=== PATIENT | female | born 1985 | race Caucasian/White ===

== ENCOUNTER 2018-12-06 10:28 | Emergency (ER) | payer MEDICAID ==
[~2018-12-06] VITALS: Ht 170.2 cm; Wt 81.7 kg
[~2018-12-06 10:28] MED LIST: ALBU90OI INH; Amoxicillin500 MG PO; BENZ100A PO; HYDACE5 PO; NAPR550 PO; Prednisone20 MG PO; QVAR7.3 G1; RXHYDACE PO; RXNAPNA550 PO; SPACE CHAMBER1 EACH MC; Zithromax250 MG PO
[2018-12-06 11:48] LABS: Source, Urine Clean Catch
[2018-12-06 11:54] LABS: Bilirubin, Urine Neg (Neg); Blood, Urine 1+ (Neg); Glucose Qualitative, Urine Neg (Neg); Ketones, Urine 1+ (Neg); Leukocyte Esterase, Urine 1+ (Neg); Nitrite, Urine Neg (Neg); Protein, Urine 1+ (Neg); Specific Gravity, Urine 1.025 (1.003-1.022); Urobilinogen, Urine 1+ (Normal)
[2018-12-06 12:12] LABS: Appearance, Urine Hazy (Clear); Color, Urine Yellow (P-Yellow)
[2018-12-06 12:13] LABS: Bacteria Rare /hpf; Mucus Light (0-Heavy); Red Blood Cells, Urine 0-2 /hpf (0-2); Squamous Epithelial Cells Few /hpf (Few); White Blood Cells, Urine 0-2 /hpf (0-5)
[2018-12-06] MEDS ORDERED: Robaxin-750750 MG PO (12:34)
[2018-12-06] MEDS ORDERED: IBUP800 PO (12:34)
== END 2018-12-06 12:37 | disposition home or self-care (01) ==
LOC: ER 10:28
PROVIDERS: Physician Assistant
DX: S30.0XXA Contusion of lower back and pelvis, initial encounter (principal); R30.0 Dysuria; W00.0XXA Fall on same level due to ice and snow, initial encounter; Z88.8 Allergy status to other drugs, medicaments and biological substances; Z87.891 Personal history of nicotine dependence
CPT/HCPCS: 72100; 72220; 81001; 87086; 99283-25

== ENCOUNTER → 2019-10-31 | Outpatient (CLI) | payer OTHER ==
[~2019-10-31] MED LIST changes: +IBUP800 PO; +Robaxin-750750 MG PO
[2019-11-02 13:07] LABS: HPV 16 Negative (Negative); HPV 18 Negative (Negative); HPV OTHER HR TYPES Negative (Negative)
== END ==
LOC: LAB 12:00 → LAB SHORT 12:00
PROVIDERS: Registered Nurse Community Health
DX: Z12.4 Encounter for screening for malignant neoplasm of cervix (principal)
CPT/HCPCS: 87624; G0123

== ENCOUNTER 2021-12-15 22:50 | Emergency (ER) | payer OTHER ==
[~2021-12-15] VITALS: Ht 170.2 cm; Wt 83.9 kg
== END 2021-12-16 00:21 | disposition home or self-care (01) ==
LOC: ER 22:50
DX: T78.40XA Allergy, unspecified, initial encounter (principal); Z87.891 Personal history of nicotine dependence
CPT/HCPCS: 99282; A9270

== ENCOUNTER 2022-07-22 20:50 | Emergency (ER) | payer OTHER ==
[~2022-07-22] VITALS: Ht 170.2 cm; Wt 70.3 kg
== END 2022-07-22 21:27 | disposition home or self-care (01) ==
LOC: ER 20:50
DX: J02.9 Acute pharyngitis, unspecified (principal); J45.909 Unspecified asthma, uncomplicated; Z88.6 Allergy status to analgesic agent; Z91.048 Other nonmedicinal substance allergy status; Z87.891 Personal history of nicotine dependence
CPT/HCPCS: 87430

== ENCOUNTER 2022-07-24 07:25 | Emergency (ER) | payer OTHER ==
[~2022-07-24] VITALS: Ht 170.2 cm; Wt 74.8 kg
[2022-07-24] MEDS ORDERED: AMOCLA875 PO (09:18)
== END 2022-07-24 09:40 | disposition home or self-care (01) ==
LOC: ER 07:25
DX: J32.9 Chronic sinusitis, unspecified (principal); J45.909 Unspecified asthma, uncomplicated; Z88.6 Allergy status to analgesic agent; Z91.048 Other nonmedicinal substance allergy status; Z87.891 Personal history of nicotine dependence
CPT/HCPCS: 99283

== ENCOUNTER 2022-07-24 18:32 | Observation (INO) | payer OTHER ==
[~2022-07-24] VITALS: Ht 170.2 cm; Wt 74.8 kg
[~2022-07-24 18:32] MED LIST changes: +AMOCLA875 PO
[2022-07-24 19:19] LABS: BASOPHILS ABSOLUTE AUTO 0.03 K/mm3 (0.00-0.23); BASOPHILS PERCENT AUTO 0 % (0-2); EOSINOPHILS ABSOLUTE AUTO 0.29 K/mm3 (0.00-0.68); EOSINOPHILS PERCENT AUTO 3 % (0-6); Hematocrit 41.9 % (33.0-51.0); IMMATURE GRAN ABSOLUTE AUTO 0.04 K/mm3 (0.00-0.10); IMMATURE GRAN PERCENT AUTO 0 % (0-1); LYMPHOCYTES ABSOLUTE AUTO 1.63 K/mm3 (0.84-5.20); LYMPHOCYTES PERCENT AUTO 15 % (21-46); MONOCYTES ABSOLUTE AUTO 0.92 K/mm3 (0.16-1.47); MONOCYTES PERCENT AUTO 9 % (4-13); Mean Corpuscular HGB 30.6 pg (26.0-34.0); Mean Corpuscular HGB Conc 33.4 g/dL (31.5-36.5); Mean Corpuscular Volume 92 fL (80-100); Mean Platelet Volume 9.2 fL (9.1-12.4); NEUTROPHILS ABSOLUTE AUTO 7.82 K/mm3 (1.96-9.15); NEUTROPHILS PERCENT AUTO 73 % (41-73); Platelet Count 356 K/mm3 (150-400); RDW Coefficient Variation 13.2 % (11.7-14.2); RDW Standard Deviation 43.9 fL (35.1-46.3); Red Blood Cell Count 4.58 M/mm3 (3.80-5.20); White Blood Cell Count 10.73 K/mm3 (4.00-11.30)
[2022-07-24 19:20] LABS: Source, Urine Clean Catch
[2022-07-24 19:26] LABS: Appearance, Urine Clear (Clear); Bilirubin, Urine Neg (Neg); Blood, Urine Neg (Neg); Glucose Qualitative, Urine Neg (Neg); Ketones, Urine Neg (Neg); Leukocyte Esterase, Urine 1+ (Neg); Nitrite, Urine Neg (Neg); Protein, Urine Neg (Neg); Specific Gravity, Urine 1.005 (1.003-1.022); Urobilinogen, Urine NORM (Normal)
[2022-07-24 19:33] LABS: Color, Urine Pale Yellow (P-Yellow)
[2022-07-24 19:34] LABS: Red Blood Cells, Urine 0-2 /hpf (0-2)
[2022-07-24 19:35] LABS: Bacteria Mod /hpf; Squamous Epithelial Cells Mod /hpf (Few)
[2022-07-24 19:38] LABS: U Amphetamine Screen Not Detected; U Barbituate Screen Not Detected; U Benzodiazapine Screen Not Detected; U Buprenorphine Screen Not Detected; U Cannabinoids Screen DETECTED; U Cocaine Screen Not Detected; U Methadone Screen Not Detected; U Methamphetamine Screen Not Detected; U Opiates Screen Not Detected; U Oxycodone Screen Not Detected; U Phencyclidine Screen Not Detected; U Propoxyphene Screen Not Detected
[2022-07-24 19:43] LABS: Salicylate <1.7 mg/dL (2.8-20.0)
[2022-07-24 19:53] LABS: Acetaminophen, Random <2.0 ug/mL (10.0-30.0); Alanine Aminotransfer (ALT/SGP 21 U/L (12-78); Albumin, Blood 4.6 g/dL (3.4-5.0); Albumin/Globulin Ratio 1.3 (0.8-1.8); Alk Phos 94 U/L (50-136); Anion Gap 7 mmol/L (6-16); Aspartate Aminotrans (AST/SGOT 15 U/L (12-37); Bilirubin, Total 0.6 mg/dL (0.1-1.0); Blood Urea Nitrogen 8 mg/dL (8-24); Bun/Creatinine Ratio 12.4 (12.0-20.0); CO2, Blood 28 mmol/L (21-32); Calcium, Blood 9.3 mg/dL (8.5-10.1); Chloride, Blood 104 mmol/L (98-108); Creatinine, Blood 0.65 mg/dL (0.40-1.00); Ethanol (Alcohol), Blood, Med <3 mg/dL; Globulin, Blood 3.5 g/dL (2.2-4.0); Glomerular Filtration Rate 116 (60-); Glucose, Blood 95 mg/dL (70-99); Potassium, Blood 3.6 mmol/L (3.5-5.5); Sodium, Blood 139 mmol/L (136-145); Total Protein, Blood 8.1 g/dL (6.4-8.2)
[2022-07-24 20:05] LABS: Influenza A, PCR NEGATIVE (NEGATIVE); Influenza B, PCR NEGATIVE (NEGATIVE); Resp Syncytial Virus, PCR NEGATIVE (NEGATIVE); SARS-Cov-2 (COVID-19) PCR, MMC NEGATIVE (NEGATIVE)
== END 2022-07-26 12:44 | disposition home or self-care (01) ==
LOC: ER 18:32 → EOR 18:33
PROVIDERS: Physician Assistant; ADMIT Emergency Medicine
DX: F33.2 Major depressive disorder, recurrent severe without psychotic features (principal); J45.909 Unspecified asthma, uncomplicated; Z20.822 Contact with and (suspected) exposure to COVID-19; Z59.00 Homelessness unspecified; Z88.6 Allergy status to analgesic agent; Z91.048 Other nonmedicinal substance allergy status
CPT/HCPCS: 0241U; 36415; 80053; 81001; 81025; 85025; 87086; 93005; 93010; A9270; G0480

== ENCOUNTER 2022-10-20 15:51 | Inpatient (IN) | payer OTHER ==
[~2022-10-20] VITALS: Ht 170.2 cm; Wt 71.6 kg
[2022-10-20 16:37] LABS: BASOPHILS ABSOLUTE AUTO 0.03 K/mm3 (0.00-0.23); BASOPHILS PERCENT AUTO 0 % (0-2); EOSINOPHILS ABSOLUTE AUTO 0.02 K/mm3 (0.00-0.68); EOSINOPHILS PERCENT AUTO 0 % (0-6); Hematocrit 39.3 % (33.0-51.0); Hemoglobin 13.2 g/dL (11.5-16.0); IMMATURE GRAN ABSOLUTE AUTO 0.02 K/mm3 (0.00-0.10); IMMATURE GRAN PERCENT AUTO 0 % (0-1); LYMPHOCYTES ABSOLUTE AUTO 1.21 K/mm3 (0.84-5.20); LYMPHOCYTES PERCENT AUTO 15 % (21-46); MONOCYTES ABSOLUTE AUTO 0.62 K/mm3 (0.16-1.47); MONOCYTES PERCENT AUTO 8 % (4-13); Mean Corpuscular HGB 30.6 pg (26.0-34.0); Mean Corpuscular HGB Conc 33.6 g/dL (31.5-36.5); Mean Corpuscular Volume 91 fL (80-100); Mean Platelet Volume 9.5 fL (9.1-12.4); NEUTROPHILS ABSOLUTE AUTO 6.28 K/mm3 (1.96-9.15); NEUTROPHILS PERCENT AUTO 77 % (41-73); Platelet Count 344 K/mm3 (150-400); RDW Coefficient Variation 13.3 % (11.7-14.2); RDW Standard Deviation 44.7 fL (35.1-46.3); Red Blood Cell Count 4.32 M/mm3 (3.80-5.20); White Blood Cell Count 8.18 K/mm3 (4.00-11.30)
[2022-10-20 16:53] LABS: Ethanol (Alcohol), Blood, Med <3 mg/dL; Salicylate <1.7 mg/dL (2.8-20.0); Thyroxine (T4) 7.5 ug/dL (4.8-13.9)
[2022-10-20] MEDS ORDERED: ALBU90OI INH (16:54)
[2022-10-20 17:00] LABS: Thyroid Stimulating Hormone 0.538 uIU/mL (0.360-4.800)
[2022-10-20 17:05] LABS: Alanine Aminotransfer (ALT/SGP 22 U/L (12-78); Albumin, Blood 4.6 g/dL (3.4-5.0); Albumin/Globulin Ratio 1.5 (0.8-1.8); Alk Phos 77 U/L (50-136); Anion Gap 7 mmol/L (6-16); Aspartate Aminotrans (AST/SGOT 15 U/L (12-37); Bilirubin, Total 0.8 mg/dL (0.1-1.0); Blood Urea Nitrogen 8 mg/dL (8-24); Bun/Creatinine Ratio 11.3 (12.0-20.0); CO2, Blood 25 mmol/L (21-32); Calcium, Blood 9.3 mg/dL (8.5-10.1); Chloride, Blood 105 mmol/L (98-108); Creatinine, Blood 0.71 mg/dL (0.40-1.00); Glomerular Filtration Rate 112 (60-); Glucose, Blood 133 mg/dL (70-99); Potassium, Blood 3.4 mmol/L (3.5-5.5); Sodium, Blood 137 mmol/L (136-145); Total Protein, Blood 7.6 g/dL (6.4-8.2)
[2022-10-20 17:46] LABS: Base Excess Venous -0.2 mmol/L; Bicarbonate Venous 23.4 mmol/L (24.0-30.0); PCO2 Venous 49.5 mmHg (38-42); pH Blood Venous 7.33 (7.34-7.37)
[2022-10-20 17:55] LABS: International Normalized Ratio 1.16; Prothrombin Time Results 12.1 Sec (9.7-11.5)
[2022-10-20 18:13] LABS: Source, Urine Clean Catch
[2022-10-20 18:19] LABS: Appearance, Urine Clear (Clear); Bilirubin, Urine Neg (Neg); Blood, Urine 1+ (Neg); Color, Urine Yellow (P-Yellow); Glucose Qualitative, Urine Neg (Neg); Ketones, Urine 1+ (Neg); Leukocyte Esterase, Urine Neg (Neg); Nitrite, Urine Neg (Neg); Protein, Urine 1+ (Neg); Urobilinogen, Urine NORM (Normal)
[2022-10-20 18:41] LABS: Influenza A, PCR NEGATIVE (NEGATIVE); Influenza B, PCR NEGATIVE (NEGATIVE); Resp Syncytial Virus, PCR NEGATIVE (NEGATIVE); SARS-Cov-2 (COVID-19) PCR, MMC NEGATIVE (NEGATIVE)
[2022-10-20 19:03] LABS: Mucus Light (0-Heavy)
[2022-10-20 19:05] LABS: Bacteria Many /hpf; Red Blood Cells, Urine 0-2 /hpf (0-2); Squamous Epithelial Cells Few /hpf (Few)
[2022-10-20 19:06] LABS: U Amphetamine Screen Not Detected; U Barbituate Screen Not Detected; U Benzodiazapine Screen Not Detected; U Buprenorphine Screen Not Detected; U Cannabinoids Screen DETECTED; U Cocaine Screen Not Detected; U Methadone Screen Not Detected; U Methamphetamine Screen Not Detected; U Opiates Screen Not Detected; U Oxycodone Screen Not Detected; U Phencyclidine Screen Not Detected; U Propoxyphene Screen Not Detected
[2022-10-20 21:16] LABS: Alanine Aminotransfer (ALT/SGP 29 U/L (12-78); Albumin, Blood 3.1 g/dL (3.4-5.0); Alk Phos 54 U/L (50-136); Aspartate Aminotrans (AST/SGOT 13 U/L (12-37); Bilirubin, Direct <0.1 mg/dL (0.0-0.3); Bilirubin, Indirect Unable to Calculate mg/dL (0.1-0.7); Bilirubin, Total 0.6 mg/dL (0.1-1.0); Total Protein, Blood 6.1 g/dL (6.4-8.2)
--- NOTE | 2022-10-20 22:26 | NUR ---
ASSUMED CARE OF PT AT 2124 TRANSFERED BY MOBILE BED FROM ER ACCOMPANIED BY RN AND SITTER. PT COOPERATIVE AND NON COMABTIVE. PT STOOD UP WITHOUT ASSIST AND TRANSFERED TO ICU BED ON HER OWN. A/O X4. ACETTYLCYSTEINE @ 125 MLS/HR NS @ 75 MLS/HR KCL @ 67.5 MLS/HR ALL BELONGINGS ARE LOCKED IN CABINET INSIDE OF ROOM. BP AND HR STABLE AND WITHIN NORMAL LIMITS AT THIS TIME. SPO2 >93% ON RA WITH NO C/O SOB. PT HAS EMESIS BAG NEXT TO HER D/T FREQUENT REPORTED EMESIS. PT STATES SHE IS NOT HAVING CURRENT SI THOUGHTS AND NO PLAN OF ACTION AFTER EVENTS TODAY. PT ASKING FOR FOOD. PT INFORMED THAT SHE IS ORDERED A CLEAR LIQUID DIET UNTIL DR ORDERS CHANGE. WATER GIVEN IN STYROFOAM CUP WITH STRAW. 1:1 SITTER AT ROOM DOOR SEE FULL ASSESSMENT FOR FURTHER INFORMATION.
[2022-10-21 03:47] LABS: BASOPHILS ABSOLUTE AUTO 0.02 K/mm3 (0.00-0.23); BASOPHILS PERCENT AUTO 0 % (0-2); EOSINOPHILS ABSOLUTE AUTO 0.01 K/mm3 (0.00-0.68); EOSINOPHILS PERCENT AUTO 0 % (0-6); Hematocrit 33.8 % (33.0-51.0); Hemoglobin 11.6 g/dL (11.5-16.0); IMMATURE GRAN ABSOLUTE AUTO 0.01 K/mm3 (0.00-0.10); IMMATURE GRAN PERCENT AUTO 0 % (0-1); LYMPHOCYTES ABSOLUTE AUTO 1.49 K/mm3 (0.84-5.20); LYMPHOCYTES PERCENT AUTO 22 % (21-46); MONOCYTES ABSOLUTE AUTO 0.74 K/mm3 (0.16-1.47); MONOCYTES PERCENT AUTO 11 % (4-13); Mean Corpuscular HGB 30.6 pg (26.0-34.0); Mean Corpuscular HGB Conc 34.3 g/dL (31.5-36.5); Mean Corpuscular Volume 89 fL (80-100); Mean Platelet Volume 9.4 fL (9.1-12.4); NEUTROPHILS ABSOLUTE AUTO 4.52 K/mm3 (1.96-9.15); NEUTROPHILS PERCENT AUTO 67 % (41-73); Platelet Count 309 K/mm3 (150-400); RDW Coefficient Variation 13.3 % (11.7-14.2); RDW Standard Deviation 43.8 fL (35.1-46.3); Red Blood Cell Count 3.79 M/mm3 (3.80-5.20); White Blood Cell Count 6.79 K/mm3 (4.00-11.30)
[2022-10-21 04:13] LABS: Albumin, Blood 3.1 g/dL (3.4-5.0); Albumin/Globulin Ratio 1.1 (0.8-1.8); Bilirubin, Total 0.9 mg/dL (0.1-1.0); Bun/Creatinine Ratio 9.1 (12.0-20.0); Calcium, Blood 8.2 mg/dL (8.5-10.1); Creatinine, Blood 0.55 mg/dL (0.40-1.00); Globulin, Blood 2.8 g/dL (2.2-4.0); Potassium, Blood 3.6 mmol/L (3.5-5.5); Total Protein, Blood 5.9 g/dL (6.4-8.2)
--- NOTE | 2022-10-21 06:30 | NUR ---
END OF SHIFT SUMMARY A/O X4. PT IS VERY PLEASANT AND COOPERATIVE WITH ALL CARE GIVEN. 1:1 SUPERVISION ALL NIGHT WITH NO ISSUES. RESP- SPO2 >93% ON RA. CARDIAC-BP ON LOW END OF NORMAL LIMITS, PT C/O DIZZINESS WHEN STANDING. WATER AT BEDSIDE. HR 80'S. GI, - PER POISON CONTROL ORDERS PT IS TO HAVE LAB DRAW AT 1300 TODAY WITH NAC STOPPING AT 1500. POISON CONTROL WILL CALL FOR RESULTS AND ANY OTHER FURTHER INSTRUCTIONS WITH AM RN. WILL CONTINUE TO MONITOR UNTIL REPORT GIVEN TO AM RN.
--- NOTE | 2022-10-21 07:20 | NUR ---
Assumed care at 0700 Patient is sleeping in bed with NAC going at 65ml/hr and NS going at 75ml/hr into PIV's. Patient vs stable on monitor with normal sinus rhythm noted. Patient has a sitter at door. Room has been stripped down to have only the essentials in the room. Resuming Care as Directed.
[2022-10-21 13:34] LABS: Acetaminophen, Random 5.3 ug/mL (10.0-30.0)
--- NOTE | 2022-10-21 14:00 | NUR ---
UPDATE: PT PROGRESS PATIENT HAS BEEN UP AND DOWN TO BATHROOM WITH RN IN OR NEAR BY. SITTER STILL AT DOORWAY. DR CARCAMO CAME, GAVE NEW ORDERS AND IS WAITING FOR DR BRIONES TO SEE PATIENT. PATIENT HAD LABS DRAWN AGAIN AT 1300. WILL SPEAK WITH POISON CONTROL AT 1430. 3RD BACK OF NAC TO END AT 1500 DEPENDING ON LAB RESULTS. PATIENT HAS BEEN COOPERATIVE WITH STAFF WATCHING TV AND LAUGHING SOME. NO ACUTE CHANGES AT THIS TIME. SHE STATES HER ABD PAIN IS NON PRESENT WHEN STILL IN BED BUT HURTS WHEN UP TO BATHROOM 2/10 PAIN SCALE. PATIENT DID STATES SHE TOOK MARIJUANA AND EDIBLES PRIOR TO TYLENOL INGESTION. DISCUSSED WITH PATIENT THE CRAMPING ALL THAT CAN CAUSE.
--- NOTE | 2022-10-21 15:52 | NUR ---
PROGRESS 1600: PATIENT DOING WELL, WATCHING TV. WAITING FOR DR BRIONES TO COME IN. PATIENT WAS SEEN BY JOY FROM [facility]. PATIENT HAS A SAFETY PLAN SET IN PLACE NOW. NO NEW URGES TO HURT SELF AT THIS TIME. SHE IS BEING SET UP TO HAVE A SHOWER NOW. SHE IS OFF ALL IV FLUIDS AND NAC PER DR CARCAMO'S ORDERS. LABS DONE AT 1300.. SEE RESULTS. POISON CONTROL UPDATED ON LABS AT 1450 TODAY. SITTER STILL AT BEDSIDE 1:1 TILL CLEARED.
--- NOTE | 2022-10-21 16:08 | NUR ---
Spiritual Care Visit. Pt. is awake and welcomes my visit. Pt. is pleasant. With theraputic listening and a calming presence pt. displays evidence of a personal dione but also a distrust for spiritual institutions. Discuss matters life and hope. Establish rapport and pray with the Pt. Pt. verbalizes gratitude for the spiritual care visit.
--- NOTE | 2022-10-21 18:17 | NUR ---
DR le by and assessed patient. She was released from observation and made Med no tele. Discontinued monitor and she is independent in room. She remains on RA and sats >90%. She will be discharged in am. Called case supervisor and left message. She is currently sitting up in bed eating dinner
--- NOTE | 2022-10-21 19:00 | NUR ---
ASSUMED CARE OF PT, REPORT RECEIVED. PT DENIES SUICIDAL THOUGHTS/IDEATION, STATES THAT SAFETY PLAN WAS FILLED OUT. SHE IS LOOKING FORWARD TO DISCHARGE HOME TOMORROW. DENIES NEEDS AT THIS TIME. PLAN OF CARE FOR THIS SHIFT DISCUSSED, PT VERBALIZED UNDERSTANDING.
[2022-10-21 19:07] LABS: Albumin, Blood 3.2 g/dL (3.4-5.0); Albumin/Globulin Ratio 1.2 (0.8-1.8); Bilirubin, Direct 0.1 mg/dL (0.0-0.3); Bilirubin, Indirect 0.3 mg/dL (0.1-0.7); Bilirubin, Total 0.4 mg/dL (0.1-1.0); Globulin, Blood 2.7 g/dL (2.2-4.0); Total Protein, Blood 5.9 g/dL (6.4-8.2)
--- NOTE | 2022-10-22 05:19 | NUR ---
PT RESTS QUIETLY THIS SHIFT, DID C/O NAUSEA X 1, DURING ZOFRAN ADMINISTRATION PT STATED THAT SHE THOUGHT HER NAUSEA WAS RELATED TO HUNGER, TOLERATED HALF SANDWICH AND JUICE WELL. SHE REMAINS ALERT AND ORIENTED AND IND IN ROOM, NO ACUTE CHANGES.
--- NOTE | 2022-10-22 09:43 | NUR ---
Assumed care for pt at 0700. She is resting comfortably in bed, medical status w/ no tele. Planned DC today.
--- NOTE | 2022-10-22 12:40 | NUR ---
RN removed IV then reviewed DC instructions w/ pt, reminding ehr she had an appt. at [facility] tomorrow at 1400. Pt gathered personal effects and backpack and ambulated from the ICU w/ a stable gait and w/o acute complaints.
== END 2022-10-22 12:40 | disposition home or self-care (01) | DRG 918 ==
LOC: ER 15:51 → EOR 17:03 → ICUW 17:03 → EOR 17:03 → ICUW 21:05
PROVIDERS: Emergency Medicine; Internal Medicine; ADMIT Student in an Organized Health Care Education/Training Program
DX: T39.1X2A Poisoning by 4-Aminophenol derivatives, intentional self-harm, initial encounter (principal); R45.851 Suicidal ideations; E87.21 Acute metabolic acidosis; F32.9 Major depressive disorder, single episode, unspecified; I10 Essential (primary) hypertension; E87.6 Hypokalemia; J45.909 Unspecified asthma, uncomplicated; F43.20 Adjustment disorder, unspecified; M26.609 Unspecified temporomandibular joint disorder, unspecified side; I95.9 Hypotension, unspecified; R74.02 Elevation of levels of lactic acid dehydrogenase [LDH]; Z20.822 Contact with and (suspected) exposure to COVID-19; Z79.51 Long term (current) use of inhaled steroids; Z88.8 Allergy status to other drugs, medicaments and biological substances
CPT/HCPCS: 0241U; 36415; 80053; 80076; 81001; 81025; 82803; 83605; 84436; 84443; 84450; 84460; 85025; 85610; 86592; 87086; 93005; 93010; 96361; 96365; 96366; 96368; 96375; 99285-25; G0480; J0132; J1650; J2405; J2765; J3480; J7030; J7040; J7050; J7060; J7070

== ENCOUNTER → 2023-10-19 | Outpatient (CLI) | payer OTHER ==
[2023-10-19 18:57] LABS: BASOPHILS ABSOLUTE AUTO 0.01 K/mm3 (0.00-0.23); BASOPHILS PERCENT AUTO 0 % (0-2); EOSINOPHILS ABSOLUTE AUTO 0.04 K/mm3 (0.00-0.68); EOSINOPHILS PERCENT AUTO 0 % (0-6); Hematocrit 36.5 % (33.0-51.0); Hemoglobin 12.2 g/dL (11.5-16.0); IMMATURE GRAN ABSOLUTE AUTO 0.02 K/mm3 (0.00-0.10); IMMATURE GRAN PERCENT AUTO 0 % (0-1); LYMPHOCYTES ABSOLUTE AUTO 1.73 K/mm3 (0.84-5.20); LYMPHOCYTES PERCENT AUTO 19 % (21-46); MONOCYTES ABSOLUTE AUTO 0.48 K/mm3 (0.16-1.47); MONOCYTES PERCENT AUTO 5 % (4-13); Mean Corpuscular HGB 30.2 pg (26.0-34.0); Mean Corpuscular HGB Conc 33.4 g/dL (31.5-36.5); Mean Corpuscular Volume 90 fL (80-100); NEUTROPHILS PERCENT AUTO 75 % (41-73); Platelet Count 270 K/mm3 (150-400); RDW Standard Deviation 42.8 fL (35.1-46.3); Red Blood Cell Count 4.04 M/mm3 (3.80-5.20); White Blood Cell Count 9.08 K/mm3 (4.00-11.30)
[2023-10-19 20:02] LABS: CHOL/HDL RATIO 2.9; Cholesterol 138 mg/dL (50-200); HDL Cholesterol 47 mg/dL (>39); LDL/HDL RATIO 1.6; Low Density Lipoprotein Chol 77 mg/dL (0-110); Triglycerides 70 mg/dL (30-140); Very Low Density Lipoprot Chol 14 mg/dL (6-28)
[2023-10-21 09:11] LABS: A/G RATIO 2.1 (1.2-2.2); BILIRUBIN, TOTAL 0.5 mg/dL (0.0-1.2); CALCIUM, SERUM 8.6 mg/dL (8.7-10.2); CREATININE, SERUM 0.68 mg/dL (0.57-1.00); POTASSIUM, SERUM 3.5 mmol/L (3.5-5.2); PROTEIN, TOTAL, SERUM 6.2 g/dL (6.0-8.5)
[2023-10-22 04:55] LABS: HSV 1 GLYCOPROTEIN G AB, IGG 0.69 IV (<=0.89); HSV 2 GLYCOPROTEIN G AB, IGG >23.60 IV (<=0.89)
[2023-10-22 13:03] LABS: HEPATITIS A ANTIBODY, IGM Negative (Negative); HEPATITIS B CORE ANTIBODY, IGM Negative (Negative); HEPATITIS B SURFACE ANTIGEN Negative (Negative); HEPATITIS C AB CIA INTERP Negative (Negative); HEPATITIS C ANTIBODY CIA INDEX 0.07 IV
[2023-10-22 17:37] LABS: APTIMA MEDIA TYPE Urine; C. TRACHOMATIS BY TMA Negative (Negative); N. GONORRHOEAE BY TMA Negative (Negative); SPECIMEN SOURCE Urine
== END ==
LOC: LAB 17:24 → LAB SHORT 17:24
PROVIDERS: Family Medicine
DX: Z00.00 Encounter for general adult medical examination without abnormal findings (principal); Z11.59 Encounter for screening for other viral diseases; Z13.6 Encounter for screening for cardiovascular disorders
CPT/HCPCS: 80053; 80061; 80074; 84443; 85025; 86592; 86695; 86696; 87491; 87591

== ENCOUNTER 2023-11-08 15:17 | Observation (INO) | payer OTHER ==
[~2023-11-08] VITALS: Ht 170.2 cm; Wt 70.3 kg
[2023-11-08 16:21] LABS: BASOPHILS ABSOLUTE AUTO 0.03 K/mm3 (0.00-0.23); BASOPHILS PERCENT AUTO 1 % (0-2); EOSINOPHILS ABSOLUTE AUTO 0.06 K/mm3 (0.00-0.68); EOSINOPHILS PERCENT AUTO 1 % (0-6); Hematocrit 37.7 % (33.0-51.0); Hemoglobin 12.2 g/dL (11.5-16.0); IMMATURE GRAN ABSOLUTE AUTO 0.01 K/mm3 (0.00-0.10); IMMATURE GRAN PERCENT AUTO 0 % (0-1); LYMPHOCYTES ABSOLUTE AUTO 1.96 K/mm3 (0.84-5.20); LYMPHOCYTES PERCENT AUTO 31 % (21-46); MONOCYTES ABSOLUTE AUTO 0.45 K/mm3 (0.16-1.47); MONOCYTES PERCENT AUTO 7 % (4-13); Mean Corpuscular HGB Conc 32.4 g/dL (31.5-36.5); Mean Corpuscular Volume 93 fL (80-100); Mean Platelet Volume 9.7 fL (9.1-12.4); NEUTROPHILS ABSOLUTE AUTO 3.81 K/mm3 (1.96-9.15); NEUTROPHILS PERCENT AUTO 60 % (41-73); Platelet Count 315 K/mm3 (150-400); RDW Coefficient Variation 13.7 % (11.7-14.2); RDW Standard Deviation 46.5 fL (35.1-46.3); Red Blood Cell Count 4.06 M/mm3 (3.80-5.20); White Blood Cell Count 6.32 K/mm3 (4.00-11.30)
[2023-11-08 16:43] LABS: Ethanol (Alcohol), Blood, Med <3 mg/dL; Salicylate <1.7 mg/dL (2.8-20.0)
[2023-11-08 16:46] LABS: Acetaminophen, Random <2.0 ug/mL (10.0-30.0); Alanine Aminotransfer (ALT/SGP 19 U/L (12-78); Albumin/Globulin Ratio 1.2 (0.8-1.8); Alk Phos 73 U/L (50-136); Anion Gap 3 mmol/L (6-16); Aspartate Aminotrans (AST/SGOT 18 U/L (12-37); Bilirubin, Total 0.7 mg/dL (0.1-1.0); Blood Urea Nitrogen 8 mg/dL (8-24); Bun/Creatinine Ratio 12.3 (12.0-20.0); CO2, Blood 27 mmol/L (21-32); Calcium, Blood 8.9 mg/dL (8.5-10.1); Chloride, Blood 107 mmol/L (98-108); Creatinine, Blood 0.65 mg/dL (0.40-1.00); Globulin, Blood 3.3 g/dL (2.2-4.0); Glomerular Filtration Rate 115 (60-); Glucose, Blood 88 mg/dL (70-99); Potassium, Blood 3.5 mmol/L (3.5-5.5); Sodium, Blood 137 mmol/L (136-145); Total Protein, Blood 7.3 g/dL (6.4-8.2)
[2023-11-08 17:05] LABS: Source, Urine Clean Catch
[2023-11-08 17:22] LABS: Appearance, Urine Clear (Clear); Bilirubin, Urine Neg (Neg); Blood, Urine Neg (Neg); Color, Urine Yellow (P-Yellow); Glucose Qualitative, Urine Neg (Neg); Ketones, Urine 3+ (Neg); Leukocyte Esterase, Urine Neg (Neg); Nitrite, Urine Neg (Neg); Protein, Urine Neg (Neg); Urobilinogen, Urine NORM (Normal)
[2023-11-08 17:40] LABS: U Amphetamine Screen Not Detected; U Barbituate Screen Not Detected; U Benzodiazapine Screen Not Detected; U Buprenorphine Screen Not Detected; U Cannabinoids Screen Not Detected; U Cocaine Screen Not Detected; U Methadone Screen Not Detected; U Methamphetamine Screen Not Detected; U Opiates Screen Not Detected; U Oxycodone Screen Not Detected; U Phencyclidine Screen Not Detected
[2023-11-09 14:36] VITALS: BP 100/70
== END 2023-11-09 14:40 | disposition home or self-care (01) ==
LOC: ER 15:17 → EOR 15:18
PROVIDERS: Physician Assistant; ADMIT Emergency Medicine
DX: F43.12 Post-traumatic stress disorder, chronic (principal); R45.851 Suicidal ideations; R45.850 Homicidal ideations; F32.9 Major depressive disorder, single episode, unspecified; J45.909 Unspecified asthma, uncomplicated; Z62.810 Personal history of physical and sexual abuse in childhood
CPT/HCPCS: 36415; 80053; 81003; 81025; 85025; 99285-25; G0378; G0480

== ENCOUNTER → 2024-01-06 | Outpatient (CLI) | payer OTHER ==
[2024-01-09 22:40] LABS: OVA AND PARASITE,FECAL INTERP Positive (Negative)
== END ==
LOC: LAB 12:50 → LAB SHORT 12:50 → LAB FUT 07-08 12:00
PROVIDERS: Family Medicine
DX: B82.9 Intestinal parasitism, unspecified (principal)
CPT/HCPCS: 87177; 87209

== ENCOUNTER → 2024-09-20 | Outpatient (CLI) | payer OTHER ==
[2024-09-20 17:07] LABS: BASOPHILS ABSOLUTE AUTO 0.03 K/mm3 (0.00-0.23); BASOPHILS PERCENT AUTO 0 % (0-2); EOSINOPHILS ABSOLUTE AUTO 0.15 K/mm3 (0.00-0.68); EOSINOPHILS PERCENT AUTO 2 % (0-6); Hematocrit 41.8 % (33.0-51.0); IMMATURE GRAN ABSOLUTE AUTO 0.02 K/mm3 (0.00-0.10); IMMATURE GRAN PERCENT AUTO 0 % (0-1); LYMPHOCYTES ABSOLUTE AUTO 1.85 K/mm3 (0.84-5.20); LYMPHOCYTES PERCENT AUTO 26 % (21-46); MONOCYTES ABSOLUTE AUTO 0.58 K/mm3 (0.16-1.47); MONOCYTES PERCENT AUTO 8 % (4-13); Mean Corpuscular HGB 30.8 pg (26.0-34.0); Mean Corpuscular HGB Conc 33.5 g/dL (31.5-36.5); Mean Corpuscular Volume 92 fL (80-100); Mean Platelet Volume 9.7 fL (9.1-12.4); NEUTROPHILS ABSOLUTE AUTO 4.52 K/mm3 (1.96-9.15); NEUTROPHILS PERCENT AUTO 63 % (41-73); Platelet Count 405 K/mm3 (150-400); RDW Coefficient Variation 13.4 % (11.7-14.2); RDW Standard Deviation 46.2 fL (35.1-46.3); Red Blood Cell Count 4.54 M/mm3 (3.80-5.20); White Blood Cell Count 7.15 K/mm3 (4.00-11.30)
[2024-09-20 17:37] LABS: Percent Saturation 19.5 % (15.0-50.0)
== END ==
LOC: LAB SHORT 14:15 → LAB 14:15
PROVIDERS: Family Medicine
DX: E61.1 Iron deficiency (principal)
CPT/HCPCS: 82728; 83540; 83550; 85025